=== PATIENT | male | born 1970 | race Caucasian/White ===

== ENCOUNTER 2021-11-14 09:32 | Emergency (ER) | payer BC, SELFPAY ==
[2021-11-14 09:42] VITALS: BP 150/80; PULSE 65; RESP 18; TEMP 36.2; O2SAT 99
--- NOTE | 2021-11-14 09:45 | ECG_ITS ---
Measurements Intervals [place] Rate: 66 P: 26 AK: 174 QRS: 19 QRSD: 98 T: 32 QT: 377 QTc: 396 Interpretive Statements SINUS RHYTHM NORMAL ECG Electronically Signed On 11-14-2021 14:06:46 CDT by Senthil Devine D.O.
[2021-11-14 09:55] VITALS: BP 135/74; BP 149/84; BP 158/84; PULSE 67; PULSE 68; PULSE 70; PULSE 77; RESP 20; O2SAT 98
[2021-11-14 10:01] LABS: Basophils Absolute Auto 0.1 K/mm3 (0.0-0.1); Basophils Percent Auto 0.9 % (0.2-1.2); Eosinophils Absolute Auto 0.2 K/mm3 (0-0.3); Eosinophils Percent Auto 2.7 % (0-4.4); Hematocrit 40.7 % (42.0-52.0); Hemoglobin 13.3 g/dL (14.0-18.0); Immature Granulocyte Absolute 0.03 K/mm3 (0.00-0.031); Immature Granulocyte Percent A 0.5 % (0-0.5); Lymphocytes Absolute Auto 2.06 K/mm3 (0.9-3.2); Mean Corpuscular HGB Conc 32.7 g/dl (32-36); Mean Corpuscular Hemoglobin 28.1 pg (26-34); Mean Platelet Volume 11.1 fl (7.4-10.4); Monocytes Absolute Auto 0.7 K/mm3 (0.1-0.6); Monocytes Percent Auto 10.8 % (2.6-8.5); Neutrophils Absolute Auto 3.6 K/mm3 (1.3-6.7); Neutrophils Percent Auto 54.1 % (45.5-73.1); Platelet Count Result 206 k/mm3 (150-375); Red Blood Count 4.73 M/mm3 (4.6-6.20); Red Cell Distribution Width 13.2 % (11.5-14.5); White Blood Count 6.7 K/mm3 (4.5-10.0)
[2021-11-14 10:11] LABS: Alanine Aminotransferase 50 U/L (6-50); Albumin Level 4.1 g/dL (3.5-5.1); Alkaline Phosphatase 88 U/L (38-126); Anion Gap 8 mmol/L (8-16); Aspartate Amino Transferase 34 U/L (17-59); Bilirubin,Total 0.2 mg/dL (0.2-1.3); Blood Urea Nitrogen 15 mg/dL (9-20); Calcium 8.8 mg/dL (8.4-10.2); Carbon Dioxide 29 mmol/L (22-30); Chloride 107 mmol/L (98-107); Estimated CRCL calculation 107 ml/min; Estimated Glomerular Filt Rate > 60; Glucose 75 mg/dL (65-110); Potassium 3.7 mmol/L (3.4-5.0); Sodium 144 mmol/L (137-145)
--- NOTE | 2021-11-14 11:00 | ED.NAVMDI ---
HPI - Nausea/Vomiting/Diarrhea General Chief complaint: Dizziness Stated complaint: dizziness Time Seen by Provider: 11/14/21 10:01 History of Present Illness HPI Narrative: 51-year-old male who states that he has been having diarrhea for the last 4 days, he has continued working and today he felt like he was getting lightheaded and vision was going gomez when he bent down, he has been trying to stay hydrated with Gatorade but not sure if that successful, no fevers or chills, no cough, no chest pain or difficulty breathing, no nausea or vomiting. Related Data Allergies Allergy/AdvReac Type Severity Reaction Status Date / Time No Known Allergies Allergy Verified 11/14/21 09:53 Review of Systems Review of Systems: CONST: No fever. HEENT: No sore throat C/V: No chest pain RESP: No cough GI: Diarrhea : No dysuria. M/S: No joint pain. SKIN: No rash. NEURO: [No headache or focal numbness or weakness], lightheadedness PSYCH: [No depression] [facility] [place] Past Medical History Medical History (Updated 11/14/21 @ 19:34 by Julieth Pagan MD) No active medical problems Social History Social History (Updated 11/14/21 @ 19:35 by Julieth Pagan MD) Smoking status: Never smoker Exam Narrative: EXAMINATION OF ORGAN SYSTEMS/BODY AREAS: Constitutional: Vital signs per nursing GENERAL:[No acute distress, non-toxic appearing.] HEAD: Normal with no signs of head trauma. EYES: EOMI, conjunctiva normal ENT: Hearing grossly intact LUNGS: Nonlabored breathing. HEART: [Regular rate and rhythm] ABD: [Soft], non[tender to palpation] EXT: Normal range of motion SKIN: [No rashes or lesions.] NEURO: [Alert and oriented x 3. No gross focal sensory or strength deficits.] PSYCH: Normal affect Course Vital Signs Vital signs: Vital Signs Temperature 97.1 F L 11/14/21 09:42 Pulse Rate 65 11/14/21 09:42 Respiratory Rate 18 11/14/21 09:42 Blood Pressure 150/80 H 11/14/21 09:42 Pulse Oximetry 99 11/14/21 09:42 Oxygen Delivery Room Air 11/14/21 09:42 Temperature 97.1 F L 11/14/21 09:42 Pulse Rate 72 11/14/21 12:03 Respiratory Rate 18 11/14/21 12:03 Blood Pressure 126/77 11/14/21 12:03 Pulse Oximetry 99 11/14/21 12:03 Oxygen Delivery Room Air 11/14/21 09:42 MDM - Nausea/Vomiting/Diarrhea MDM Narrative Medical decision making narrative: 51-year-old male presenting with presyncope and 4 days of diarrhea, vital stable, exam shows well-appearing patient with nontender abdomen, normal neuro and cardiopulmonary exam, I suspect most likely dehydration with orthostatic hypotension, doubt cardiac abnormality without chest pain, he is given IV fluids, on reevaluation is feeling much better, he is ready to go home, strict precautions provided. Differential Diagnosis Differential diagnosis: Likely food poisoning, gastroenteritis and dehydration Lab Data Result diagrams: 11/14/21 09:54 11/14/21 09:54 Labs: Lab Results 11/14/21 11/14/21 Range/Units 09:54 09:54 WBC 6.7 (4.5-10.0) K/mm3 RBC 4.73 (4.6-6.20) M/mm3 Hgb 13.3 L (14.0-18.0) g/dL Hct 40.7 L (42.0-52.0) % MCV 86.0 (80-100) fl MCH 28.1 (26-34) pg MCHC 32.7 (32-36) g/dl RDW 13.2 (11.5-14.5) % Plt Count 206 (150-375) k/mm3 MPV 11.1 H (7.4-10.4) fl Immature Gran % (Auto) 0.5 (0-0.5) % Neut % (Auto) 54.1 (45.5-73.1) % Lymph % (Auto) 31.0 (18.3-44.2) % [place] % (Auto) 10.8 H (2.6-8.5) % Eos % (Auto) 2.7 (0-4.4) % Baso % (Auto) 0.9 (0.2-1.2) % Lymph # (Auto) 2.06 (0.9-3.2) K/mm3 [place] # (Auto) 0.7 H (0.1-0.6) K/mm3 Eos # (Auto) 0.2 (0-0.3) K/mm3 Baso # (Auto) 0.1 (0.0-0.1) K/mm3 Abs Immat Gran (auto) 0.03 (0.00-0.031) K/mm3 Absolute Neuts (auto) 3.6 (1.3-6.7) K/mm3 Absolute Nucleated RBC 0.0 (0.0-0.012) K/mm3 Nucleated RBC % 0.0 (0.0-0.2) % Sodium 144 (137-145) mmol/L Potassium 3.7 (3.4-5.0) mmol/L Chloride 107 (
[2021-11-14] MEDS: LACTATED RINGERS 1,000 ML 999 ML IV CONT (11:07)
[2021-11-14 11:39] VITALS: BP 126/77; PULSE 98; RESP 16; O2SAT 99
[2021-11-14 12:03] VITALS: BP 126/77; PULSE 72; RESP 18; O2SAT 99
== END 2021-11-14 12:04 | disposition home or self-care (01) ==
PROVIDERS: Emergency Provider Emergency Medicine
DX: R19.7 Diarrhea, unspecified (principal); R42 Dizziness and giddiness
CPT/HCPCS: 36415; 80053; 85025; 93005; 99283; J7120